=== PATIENT | male | born 1985 | race Caucasian/White ===

== ENCOUNTER 2021-10-01 18:02 | Observation (INO) ==
[2021-10-01] MEDS ORDERED: Ondansetron 4 MG/2 ML VIAL IVP PRN (20:53)
[2021-10-01] MEDS ORDERED: *HR* OxyCODONE/APAP 5/325 TABLET PO PRN (20:53)
[2021-10-01] MEDS ORDERED: Ketorolac 30 MG/ML VIAL IVP PRN (20:53)
[2021-10-01] MEDS ORDERED: *HR* HYDROmorphone (PF) 1 MG/ML SYRINGE IVP PRN (20:55)
[2021-10-01] MEDS: 0.9 % Sodium Chloride 1,000 ML IVC SCH (21:20)
[2021-10-02] MEDS: Piperacillin/Tazobactam 3.375 GM in 0.9 % Sodium Chloride Mini Bag 100 ML IVPB SCH ×3 (00:21→15:24)
[2021-10-02] MEDS ORDERED: Famotidine 20 MG/2 ML VIAL IVP ONE (07:20)
[2021-10-02] MEDS ORDERED: *HR* OxyCODONE Immed Rel 5 MG TABLET PO PRN ×2 (07:20→11:53)
[2021-10-02] MEDS ORDERED: *HR* Promethazine 25 MG/ML VIAL IVPB PRN ×2 (07:20→11:53)
[2021-10-02] MEDS ORDERED: *HR* Labetalol 20 MG/4 ML SYRINGE IVP PRN ×2 (07:20→11:53)
[2021-10-02] MEDS ORDERED: *HR* HYDROmorphone (PF) 1 MG/ML SYRINGE IVP PRN ×3 (07:20→11:53)
[2021-10-02] MEDS ORDERED: Acetaminophen IV 1,000 MG/100 ML BAG IVPB ONE ×2 (07:20→08:10)
[2021-10-02] MEDS ORDERED: cloNIDine HCL 0.1 MG TABLET PO PRN ×2 (07:20→11:53)
[2021-10-02] MEDS ORDERED: *HR* HYDROmorphone 2 MG TABLET PO PRN ×2 (07:20→11:53)
[2021-10-02] MEDS ORDERED: *HR* Propofol 200 MG/20 ML VIAL IVP ONE (07:38)
[2021-10-02] MEDS ORDERED: *HR* Midazolam HCl 2 MG/2 ML VIAL ONE (07:38)
[2021-10-02] MEDS ORDERED: *HR* FentaNYL (PF) 100 MCG/2 ML VIAL ONE (07:38)
[2021-10-02] MEDS ORDERED: CefOXitin 1,000 MG VIAL ONE (07:43)
[2021-10-02] MEDS ORDERED: Lidocaine -MPF 2% 5 ML VIAL ONE (07:44)
[2021-10-02] MEDS ORDERED: Ondansetron 4 MG/2 ML VIAL ONE (07:44)
[2021-10-02] MEDS ORDERED: *HR* Rocuronium Bromide 50 MG/5 ML VIAL ONE (07:44)
[2021-10-02] MEDS ORDERED: Lidocaine HCL 4 ML Topical Solution (Laryng-O-Jet Kit Sterile Pak) TP ONE (07:44)
[2021-10-02] MEDS ORDERED: Famotidine 20 MG/2 ML VIAL ONE (08:23)
[2021-10-02] MEDS ORDERED: *HR* HYDROMORPHONE 2 MG/ML VIAL ONE (08:44)
[2021-10-02] MEDS ORDERED: Sugammadex Sodium 200 MG/2 ML VIAL IV ONE (08:55)
[2021-10-02] MEDS ORDERED: Ketorolac 30 MG/ML VIAL IVP PRN (11:53)
[2021-10-02] MEDS ORDERED: *HR* OxyCODONE/APAP 5/325 TABLET PO PRN (11:53)
[2021-10-02] MEDS ORDERED: Ondansetron 4 MG/2 ML VIAL IVP PRN (11:53)
[2021-10-02] MEDS: 0.9 % Sodium Chloride 1,000 ML IVC SCH (12:18)
[2021-10-03] MEDS: Piperacillin/Tazobactam 3.375 GM in 0.9 % Sodium Chloride Mini Bag 100 ML IVPB SCH ×2 (00:04→07:49)
[2021-10-03] MEDS: 0.9 % Sodium Chloride 1,000 ML IVC SCH ×2 (01:40→08:08)
[2021-10-03] MEDS ORDERED: Ibuprofen 400 MG TABLET PO STA (07:10)
[2021-10-03] MEDS ORDERED: *HR* OxyCODONE Immed Rel 5 MG TABLET PO PRN (07:10)
[2021-10-03 11:45] VITALS: BP 117/68; PULSE 83; TEMP 97.8; O2SAT 95
== END 2021-10-03 12:56 | disposition home or self-care (01) ==
LOC: 3BNU
PROVIDERS: ADMIT Surgery; ATTEND Surgery